=== PATIENT | female | born 1985 | race Caucasian/White ===

== ENCOUNTER 2016-08-27 22:07 | Emergency (ER) | payer OTHER ==
[2016-08-27 22:40] VITALS: TEMP 98.8
[2016-08-27 22:41] VITALS: BMI 42.2
--- NOTE | 2016-08-27 22:51 | ED PDOC ---
Arrival/HPI - General Chief Complaint: Lower Extremity Problem/Injury Time Seen by Provider: 08/27/16 22:46 Historian: Patient - History of Present Illness Narrative History of Present Illness (Text): 08/27/16 22:51 Meenakshi Griggs is a 31 year old female, whose past medical history includes DVT and asthma, who presents to the Emergency department complaining of right lower leg pain. Patient states she began experiencing right lower leg stiffness 1 1/2 weeks ago which began to worse over the past few days. Patient reports associated swelling. Patient states she is currently not on any blood thinners. Patient denies any weakness/numbness/tingling in the extremity, recent fall/ trauma, chest pain, shortness of breath, nausea, vomiting, diarrhea, back pain, headache, dizziness, or any other complaints. Time/Duration: > week (1 1/2 week) Symptom Onset: Gradual Symptom Course: Unchanged Activities at Onset: Rest, Light Context: Home Past Medical History - Provider Review Nursing Documentation Reviewed: Yes - Infectious Disease Hx of Infectious Diseases: None - Cardiac Hx Cardiac Disorders: Yes Other/Comment: CLOTTING PROBLEMDVT. Lupus - Pulmonary Hx Respiratory Disorders: Yes Hx Asthma: Yes - Neurological Hx Neurological Disorder: No - HEENT Hx HEENT Disorder: No - Renal Hx Renal Disorder: No - Endocrine/Metabolic Hx Endocrine Disorders: Yes Other/Comment: Pt states she is currently seeing a rhematologist to r/o lupus. - Hematological/Oncological Hx Blood Disorders: No - Integumentary Hx Dermatological Disorder: No - Musculoskeletal/Rheumatological Hx Musculoskeletal Disorders: No - Gastrointestinal Hx Gastrointestinal Disorders: No - Genitourinary/Gynecological Hx Genitourinary Disorders: No - Psychiatric Hx Psychophysiologic Disorder: No Hx Substance Use: No - Surgical History Other/Comment: Thymus removed - Anesthesia Hx Anesthesia: No - Suicidal Assessment Feels Threatened In Home Enviroment: No Family/Social History - Physician Review Nursing Documentation Reviewed: Yes Family/Social History: No Known Family HX Smoking Status: Former Smoker Hx Alcohol Use: No Hx Substance Use: No Hx Substance Use Treatment: No Allergies/Home Meds Allergies/Adverse Reactions: Allergies No Known Allergies Allergy (Verified 06/15/14 04:52) Home Medications: Home Meds Medication Instructions Recorded Confirmed Albuterol Sulfate [Proair 90 mcg IH DAILY 04/15/16 08/27/16 Respiclick] Albuterol/Ipratropium [Duoneb 3 3 ml IH ACBD 04/15/16 08/27/16 MG/3 Ml-0.5 MG/3 Ml 3 Ml] Review of Systems - Physician Review All systems were reviewed & negative as marked: Yes - Review of Systems Constitutional: Normal. absent: Fevers Eyes: Normal ENT: Normal Respiratory: Normal. absent: SOB, Cough Cardiovascular: Normal. absent: Chest Pain Gastrointestinal: Normal. absent: Abdominal Pain, Diarrhea, Nausea, Vomiting Genitourinary Female: Normal. absent: Dysuria, Frequency, Hematuria, Urine Output Changes Musculoskeletal: Other (+right lower leg pain/stiffness). absent: Back Pain, Neck Pain Skin: Normal. absent: Rash Neurological: Normal. absent: Headache, Dizziness Endocrine: Normal Hemo/Lymphatic: Normal Psychiatric: Normal Physical Exam Vital Signs Reviewed: Yes Vital Signs Temp Pulse Resp BP Pulse Ox 08/28/16 00:39 72 17 139/83 99 08/27/16 22:39 98.8 F 75 18 125/83 98 Temperature: Afebrile Blood Pressure: Normal Pulse: Regular Respiratory Rate: Normal Appearance: Positive for: Well-Appearing, Non-Toxic, Comfortable Pain Distress: None Mental Status: Positive for: Alert and Oriented X 3 - Systems Exam Head: Present: Atraumatic, Normocephalic Pupils: Present: PERRL Extroacular Muscles: Present: EOMI Conjunctiva: Present: Normal Mouth: Present: Moist Mucous Membranes Neck: Present: Normal Range of Motion Respiratory/Chest: Present: Clear to Auscultation, Good Air Exchange. No: Respiratory Distress, Accessory Muscle Use Cardiovascular: Present: Regular Rate and Rhythm, Normal S1, S2. No: Murmurs Abdomen: Present: Normal Bowel Sounds. No: Tenderness, Distention, Peritoneal Signs Lower Extremity: Present: NORMAL PULSES, Normal ROM, Neurovascularly Intact, Capillary Refill < 2 s. No: CALF TENDERNESS, Cyanosis, Tenderness, Swelling, Erythema, Deformity, Temperature Abnormalties Neurological: Present: GCS=15, CN II-XII Intact, Speech Normal Skin: Present: Warm, Dry, Normal Color. No: Rashes Psychiatric: Present: Alert, Oriented x 3, Normal Insight, Normal Concentration Medical Decision Making ED Course and Treatment: 08/27/16 22:51 Impression: 31 year old female complaining of right lower leg stiffness with some swelling for 1 1/2 weeks. Differential Diagnosis include but are not limited to: DVT vs. muscle strain/ sprain Plan: -- US Duplex Lower Extremities -- Reassess and disposition Prior Visits: Notes and results from previous visits were reviewed. Progress Notes: 08/28/16 00:15 Reviewed sono, US Duplex Lower Extremities are negative for DVT. 08/28/16 00:30 On re-evaluation, the patient feels better and is in no acute distress. I have discussed the results and plan with the patient, who expresses understanding. Patient in agreement with plan to discharged home. Patient is stable for discharge. Patient was instructed to follow up with physician/clinic in 1-2 days or return if symptoms worsen or new concerning symptoms arise. Re-evaluation Time: 00:30 Reassessment Condition: Re-examined, Improved - RAD Interpretation Radiology Orders: 08/27/16 22:51 DUPLEX LOWER EXTRM VEIN RIGHT [US] Stat - Scribe Statement The provider has reviewed the documentation as recorded by the Scribe Janna Means All medical record entries made by the Scribe were at my direction and personally dictated by me. I have reviewed the chart and agree that the record accurately reflects my personal performance of the history, physical exam, medical decision making, and the department course for this patient. I have also personally directed, reviewed, and agree with the discharge instructions and disposition. Disposition/Present on Arrival - Present on Arrival Any Indicators Present on Arrival: No History of DVT/PE: Yes History of Uncontrolled Diabetes: No Urinary Catheter: No History of Decub. Ulcer: No History Surgical Site Infection Following: None - Disposition Have Diagnosis and Disposition been Completed?: Yes Diagnosis: Leg strain Disposition: HOME/ ROUTINE Disposition Time: 00:31 Condition: GOOD Discharge Instructions (ExitCare): Muscle Cramp (ED)
[2016-08-28 00:41] VITALS: BP 139/83; PULSE 72; RESP 17; O2SAT 99
--- NOTE | 2016-08-28 08:37 | US ---
PROCEDURE: Right lower extremity venous duplex Doppler. HISTORY: leg pain COMPARISON: None available. TECHNIQUE: Common femoral, superficial femoral, popliteal and posterior tibial veins were evaluated. Flow was assessed with color Doppler, compressibility, assessment of phasic flow and augmentation response. FINDINGS: COMMON FEMORAL VEIN: Unremarkable. SUPERFICIAL FEMORAL VEIN: Unremarkable. POPLITEAL VEIN: Unremarkable. POSTERIOR TIBIAL VEIN: Unremarkable. OTHER FINDINGS: None. IMPRESSION: No evidence of deep venous thrombosis in the right lower extremity.
== END 2016-08-28 00:44 | disposition home or self-care (01) ==
LOC: ED 22:07
DX: S86.911A Strain of unspecified muscle(s) and tendon(s) at lower leg level, right leg, initial encounter (principal); X58.XXXA Exposure to other specified factors, initial encounter; M32.9 Systemic lupus erythematosus, unspecified

== ENCOUNTER 2017-10-02 21:32 | Emergency (ER) | payer OTHER ==
[2017-10-02 21:59] VITALS: RESP 17; BMI 42.0
--- NOTE | 2017-10-02 22:07 | ED PDOC ---
Arrival/HPI - General Chief Complaint: Lower Extremity Problem/Injury Time Seen by Provider: 10/02/17 22:02 Historian: Patient - History of Present Illness Narrative History of Present Illness (Text): 10/02/17 22:05 Meenakshi Griggs is a 32 year old female, whose past medical history includes DVT and asthma, who presents to the Emergency department complaining of right lower leg pain. Patient states she struck her right foot against an object while running 2 weeks ago and has been experiencing pain to the area with associated tingling/stiffness sensation radiating up her lower leg. Patient denies any fever, chills, chest pain, shortness of breath, nausea, vomiting, back pain, neck pain, headache, dizziness, or any other complaints. Symptom Onset: Gradual Symptom Course: Unchanged Activities at Onset: Light Context: Home Past Medical History - Provider Review Nursing Documentation Reviewed: Yes - Infectious Disease Hx of Infectious Diseases: None - Cardiac Hx Cardiac Disorders: Yes Other/Comment: CLOTTING PROBLEMDVT - Pulmonary Hx Respiratory Disorders: Yes Hx Asthma: Yes - Neurological Hx Neurological Disorder: No - HEENT Hx HEENT Disorder: No - Renal Hx Renal Disorder: No - Endocrine/Metabolic Hx Endocrine Disorders: Yes Other/Comment: Pt states she is currently seeing a rhematologist to r/o lupus. Thymoma - Hematological/Oncological Hx Blood Disorders: No Other/Comment: Mixed Connective Tissue Disease. - Integumentary Hx Dermatological Disorder: No - Musculoskeletal/Rheumatological Hx Musculoskeletal Disorders: No - Gastrointestinal Hx Gastrointestinal Disorders: No - Genitourinary/Gynecological Hx Genitourinary Disorders: No - Psychiatric Hx Psychophysiologic Disorder: No Hx Substance Use: No - Surgical History Other/Comment: Thymus removed - Anesthesia Hx Anesthesia: No - Suicidal Assessment Feels Threatened In Home Enviroment: No Family/Social History - Physician Review Nursing Documentation Reviewed: Yes Family/Social History: Unknown Family HX Smoking Status: Former Smoker Hx Alcohol Use: No Hx Substance Use: No Hx Substance Use Treatment: No Allergies/Home Meds Allergies/Adverse Reactions: Allergies No Known Allergies Allergy (Verified 10/02/17 21:41) Home Medications: Home Meds Medication Instructions Recorded Confirmed Albuterol Sulfate [Proair 90 mcg IH DAILY 04/15/16 10/02/17 Respiclick] Albuterol/Ipratropium [Duoneb 3 3 ml IH ACBD 04/15/16 10/02/17 MG/3 Ml-0.5 MG/3 Ml 3 Ml] Review of Systems - Physician Review All systems were reviewed & negative as marked: Yes - Review of Systems Constitutional: Normal. absent: Fevers Eyes: Normal ENT: Normal Respiratory: Normal. absent: SOB, Cough Cardiovascular: Normal. absent: Chest Pain Gastrointestinal: Normal. absent: Abdominal Pain, Diarrhea, Nausea, Vomiting Genitourinary Female: Normal. absent: Dysuria, Frequency, Hematuria, Urine Output Changes Musculoskeletal: Other (+right foot/lower leg pain). absent: Back Pain, Neck Pain Skin: Normal. absent: Rash Neurological: Normal. absent: Headache, Dizziness Endocrine: Normal Hemo/Lymphatic: Normal Psychiatric: Normal Physical Exam Vital Signs Reviewed: Yes Vital Signs Temp Pulse Resp BP Pulse Ox 10/02/17 21:42 98.7 F 89 17 116/67 97 Temperature: Afebrile Blood Pressure: Normal Pulse: Regular Respiratory Rate: Normal Appearance: Positive for: Well-Appearing, Non-Toxic, Comfortable Pain Distress: None Mental Status: Positive for: Alert and Oriented X 3 - Systems Exam Head: Present: Atraumatic, Normocephalic Pupils: Present: PERRL Extroacular Muscles: Present: EOMI Conjunctiva: Present: Normal Mouth: Present: Moist Mucous Membranes Neck: Present: Normal Range of Motion Respiratory/Chest: Present: Clear to Auscultation, Good Air Exchange. No: Respiratory Distress, Accessory Muscle Use Cardiovascular: Present: Regular Rate and Rhythm, Normal S1, S2. No: Murmurs Abdomen: No: Tenderness, Distention, Peritoneal Signs Back: Present: Normal Inspection Upper Extremity: Present: Normal Inspection. No: Cyanosis, Edema Lower Extremity: Present: Normal Inspection, NORMAL PULSES, Normal ROM, Neurovascularly Intact, Capillary Refill < 2 s. No: Edema, CALF TENDERNESS, Cyanosis, Tenderness, Swelling, Erythema, Deformity, Temperature Abnormalties Neurological: Present: GCS=15, CN II-XII Intact, Speech Normal Skin: Present: Warm, Dry, Normal Color. No: Rashes Psychiatric: Present: Alert, Oriented x 3, Normal Insight, Normal Concentration Medical Decision Making ED Course and Treatment: 10/02/17 22:05 Impression: 32 year old female complaining of right foot/lower leg pain s/p injury with associated tingling/stiffness sensation for 2 weeks. Plan: -- XR Right Tibia/Fibula -- XR Right Foot -- US Duplex Lower Extremities -- Reassess and disposition Progress Notes: 10/02/17 23:35 Reviewed radiology, XR Right Tibia/Fibulas shows no acute processes, no fractures. XR Right Foot shows no acute processes, no fractures. US Duplex Lower Extremities negative for DVT. 10/02/17 23:46 On re-evaluation, patient feels better and is in no acute distress. I have discussed the results and plan with the patient, who expresses understanding. Patient in agreement with plan to be discharged home. Patient is stable for discharge. Patient was instructed to follow up with physician or return if symptoms worsen or new concerning symptoms arise. - RAD Interpretation Radiology Orders: 10/02/17 22:06 FOOT RIGHT 3 VIEWS ROUTINE [RAD] Stat DUPLEX LOWER EXTRM VEIN BILAT [US] Stat 10/02/17 22:08 TIBIA FIBULA RIGHT [RAD] Stat Shipping Support Clerk: ED Physician - Scribe Statement The provider has reviewed the documentation as recorded by the Scriblore Means All medical record entries made by the Scribe were at my direction and personally dictated by me. I have reviewed the chart and agree that the record accurately reflects my personal performance of the history, physical exam, medical decision making, and the department course for this patient. I have also personally directed, reviewed, and agree with the discharge instructions and disposition. Disposition/Present on Arrival - Present on Arrival Any Indicators Present on Arrival: No History of DVT/PE: Yes History of Uncontrolled Diabetes: No Urinary Catheter: No History of Decub. Ulcer: No History Surgical Site Infection Following: None - Disposition Have Diagnosis and Disposition been Completed?: Yes Diagnosis: Leg pain Disposition: HOME/ ROUTINE Disposition Time: 23:46 Patient Problems: Current Active Problems Problem Status Onset Leg pain Acute Condition: STABLE Additional Instructions: Rest the affected area/tylenol as directed/follow up with your doctor this week Forms: [place] ([place])
[2017-10-02 23:59] VITALS: BP 120/72; PULSE 82; TEMP 98.6; O2SAT 98
--- NOTE | 2017-10-03 09:11 | RAD ---
PROCEDURE: Right Foot Radiographs. HISTORY: injury COMPARISON: None. FINDINGS: BONES: There is a nondisplaced transverse fracture through the base of the 5th proximal phalanx JOINTS: Normal. SOFT TISSUES: Normal. OTHER FINDINGS: None. IMPRESSION: There is a nondisplaced transverse fracture through the base of the 5th proximal phalanx
--- NOTE | 2017-10-03 09:12 | RAD ---
PROCEDURE: Radiographs of the right tibia and fibula. HISTORY: pain COMPARISON: None available. TECHNIQUE: Frontal and lateral views obtained. FINDINGS: BONES: No fracture or destructive lesion. JOINT SPACES: Unremarkable. OTHER FINDINGS: None. IMPRESSION: Unremarkable radiographs of the right tibia and fibula.
--- NOTE | 2017-10-03 12:11 | US ---
HISTORY: Leg pain and swelling. Evaluate for DVT PHYSICIAN(S): Dannie Stevens MD. TECHNIQUE: Duplex sonography and color-flow Doppler with graded compression were used to evaluate the deep venous systems of both lower extremities. FINDINGS: The visualized deep venous systems of both lower extremities are sonographically normal and compressible. Normal wave forms and augmentation are seen. There is no sonographic evidence for deep venous thrombosis in the visualized segments of both lower extremities. IMPRESSION: No sonographic evidence for deep venous thrombosis in the visualized segments of both lower extremities.
== END 2017-10-02 23:58 | disposition home or self-care (01) ==
LOC: ED 21:32
DX: M79.604 Pain in right leg (principal); Z86.718 Personal history of other venous thrombosis and embolism